=== PATIENT | female | born 1990 | race African-American/Black ===

== ENCOUNTER 2018-05-04 21:30 | Observation (INO) ==
[2018-05-04] MEDS ORDERED: Sod Chloride 0.9% Inj 1,000 ML IV.SIG ONE (23:52)
[2018-05-04] MEDS ORDERED: Ketorolac Inj 30 MG/ML (IVP) Vial IV.PUSH ONE (23:52)
[2018-05-05 00:22] LABS: Baso % (Auto) 0.6 % (0.0-2.0); Eos # (Auto) 0.1 th/mm3 (0.0-0.4); Eos % (Auto) 1.5 % (0.0-4.0); Hematocrit 34.8 % (35.0-46.0); Hemoglobin 11.6 gm/dL (11.6-15.3); Lymph % (Auto) 50.8 % (9.0-44.0); Mean Corpuscular HGB Conc 33.4 % (32.0-36.0); Mean Corpuscular Hemoglobin 31.9 pg (27.0-34.0); Mean Corpuscular Volume 95.7 fL (80.0-100.0); Mean Platelet Volume 7.8 fL (7.0-11.0); Mono # (Auto) 0.5 th/mm3 (0.0-0.9); Mono % (Auto) 8.3 % (0.0-8.0); Neut # (Auto) 2.3 th/mm3 (1.8-7.7); Neut % (Auto) 38.8 % (16.0-70.0); Platelet Count 258 th/mm3 (150-450); Red Blood Count 3.63 mil/mm3 (4.00-5.30); Red Cell Distribution Width 13.7 % (11.6-17.2); White Blood Count 5.8 th/mm3 (4.0-11.0)
[2018-05-05 00:42] LABS: Albumin 3.5 g/dL (3.4-5.0); Anion Gap 7 meq/L (5-15); Aspartate Aminotransferase 11 U/L (15-37); Blood Urea Nitrogen 15 mg/dL (7-18); Calcium 8.3 mg/dL (8.5-10.1); Carbon Dioxide 29.4 meq/L (21.0-32.0); Chloride 104 meq/L (98-107); Glomerular Filtration Rate Greater Than 89 mL/min (>89); Glucose,Random 93 mg/dL (74-106); Potassium 3.7 meq/L (3.5-5.1); Sodium 140 meq/L (136-145)
[2018-05-05 00:43] LABS: Alanine Aminotransferase 13 U/L (10-53)
[2018-05-05 00:45] LABS: Alkaline Phosphatase 50 U/L (45-117); Total Protein 6.7 g/dL (6.4-8.2)
--- NOTE | 2018-05-05 00:54 | ED ---
HPI General Chief complaint: Headache Stated complaint: dr vasquez/gia neuro Time Seen by Provider: 05/04/18 23:03 History of Present Illness HPI narrative: Patient 27-year-old female presents to the emergency department for evaluation of headache for the past 3 weeks. Patient actually presented to the hospital a few months ago and was diagnosed with a complex migraine versus TIA, she had an MRI which showed what appeared to be a simple cyst. She is also had some chronic pains and went to her orthopedic surgeon today who ordered MRIs of her spine and an MRI of her brain which showed that the cyst had probably grown in size per finding the history of the headache also ordered MRI of the brain which showed that the cyst had probably grown in size, also had changes possibly consistent with scattered infarcts or even an infectious process considering Lyme disease. Still with headache for the past 3 weeks she decided to present here. Before these events she never had headaches in the past. No focalized weakness, no visual difficulty. Related Data Home Medications Medication Instructions Recorded Confirmed ibuprofen 600 mg PO TID PRN 05/04/18 05/04/18 Allergies Allergy/AdvReac Type Severity Reaction Status Date / Time No Known Allergies Allergy Verified 05/04/18 23:11 Review of Systems ROS: all other systems reviewed are negative PMFSH Social History Social History Substance History: No History of Abuse Smoking Status: Current every day smoker Tobacco Type: Cigarettes How Often Do You Have a Drink Containing Alcohol: Monthly or less Recent Travel in [facility] within the Last 8 Weeks: No Recent Out of Country Travel within the Last 8 Weeks: No Immunization History Tetanus Immunization: Unsure Hx Influenza Vaccine This Season: No Exam Narrative Exam Narrative: GENERAL: Well-developed well-nourished appears uncomfortable. SKIN: Focused skin assessment warm/dry. HEAD: Atraumatic. Normocephalic. EYES: Pupils equal and round. No scleral icterus. No injection or drainage. ENT: No nasal bleeding or discharge. Mucous membranes pink and moist. NECK: Trachea midline. No JVD. CARDIOVASCULAR: Regular rate and rhythm. No murmur appreciated. RESPIRATORY: No accessory muscle use. Clear to auscultation. Breath sounds equal bilaterally. GASTROINTESTINAL: Abdomen soft, non-tender, nondistended. Hepatic and splenic margins not palpable. MUSCULOSKELETAL: No obvious deformities. No clubbing. No cyanosis. No edema. NEUROLOGICAL: Awake alert and oriented, cranial nerves II through XII grossly intact and nonfocal, 5 out of 5 strength in all 4 extremity's, cerebellar testing negative. PSYCHIATRIC: Appropriate mood and affect; insight and judgment normal. Course Initial Documented Vital Signs Temperature 98.2 F 05/04/18 21:34 Pulse Rate 94 H 05/04/18 21:34 Respiratory Rate 16 05/04/18 21:34 Blood Pressure 111/60 05/04/18 21:34 Pulse Oximetry 100 05/04/18 21:34 Last Documented Vital Signs Temperature 98.2 F 05/04/18 21:34 Pulse Rate 75 05/05/18 00:18 Respiratory Rate 16 05/05/18 00:34 Blood Pressure 118/77 05/05/18 00:18 Pulse Oximetry 100 05/05/18 00:18 Medical Decision Making MDM Narrative Medical decision making narrative: Patient has MRI disk and report with her. It appears as though this lesion has grown in her brain. Also with multiple abnormalities now concerning for "demylinating disease or lymes". patient feeling better after headache cocktail. ESR CRP negative. May be incidental finidng but patient warrants further workup and routine LP ordered by IR. Medical Screen Exam Complete: Yes Emergency Medical Condition: Yes Differential Diagnosis Differential Diagnosis: Headache, Abnormal MRI, MS, Lymes. Lab Data Result diagrams: 05/05/18 00:07 05/05/18 00:07 Lab Results 05/05/18 05/05/18 05/05/18 Range/Units 00:07 00:07 00:07 WBC 5.8 (4.0-11.0) th/mm3 RBC 3.63 L (4.00-5.30) mil/mm3 Hgb 11.6 (11.6-15.3) gm/dL Hct 34.8 L (35.0-46.0) % MCV 95.7 (80.0-100.0) fL MCH 31.9 (27.0-34.0) pg MCHC 33.4 (32.0-36.0) % RDW 13.7 (11.6-17.2) % Plt Count 258 (150-450) th/mm3 MPV 7.8 (7.0-11.0) fL Neut % (Auto) 38.8 (16.0-70.0) % Lymph % (Auto) 50.8 H (9.0-44.0) % [place] % (Auto) 8.3 H (0.0-8.0) % Eos % (Auto) 1.5 (0.0-4.0) % Baso % (Auto) 0.6 (0.0-2.0) % Neut # (Auto) 2.3 (1.8-7.7) th/mm3 Lymph # (Auto) 3.0 (1.0-4.8) th/mm3 [place] # (Auto) 0.5 (0.0-0.9) th/mm3 Eos # (Auto) 0.1 (0.0-0.4) th/mm3 Baso # (Auto) 0.0 (0.0-0.2) th/mm3 WBC Differential . Differential Comment Auto diff final ESR 7 (0-20) mm/hr Sodium 140 (136-145) meq/L Potassium 3.7 (3.5-5.1) meq/L Chloride 104 (98-107) meq/L Carbon Dioxide 29.4 (21.0-32.0) meq/L Anion Gap 7 (5-15) meq/L BUN 15 (7-18) mg/dL Creatinine 0.73 (0.50-1.00) mg/dL Estimated GFR Greater than 89 (>89) mL/min Random Glucose 93 (74-106) mg/dL Calcium 8.3 L (8.5-10.1) mg/dL Total Bilirubin 0.2 (0.2-1.0) mg/dL AST 11 L (15-37) U/L ALT 13 (10-53) U/L Alkaline Phosphatase 50 (45-117) U/L C-Reactive Protein Less than 0.29 (0.00-0.30) mg/dL Total Protein 6.7 (6.4-8.2) g/dL Albumin 3.5 (3.4-5.0) g/dL Discharge Plan Discharge Disposition Patient Disposition: 30 Still Patient Discharge Details Diagnosis: Headache Physicians Team ED Provider: Kyler Dennis Primary Care Provider: UNKNOWN, Attending Provider: Gregory Mack Discharge Interventions Interventions: Vital Signs Last Done: 05/05/18 00:18 Status ED Status: Admitted Patient
[2018-05-05] MEDS ORDERED: Bisacodyl 10 MG Supp RECTAL PRN (01:35)
[2018-05-05] MEDS: Sod Chloride 0.9% Inj 1,000 ML IV.CONT SCH ×2 (02:46→13:32)
--- NOTE | 2018-05-05 04:17 | P.HPIM ---
History of Present Illness Primary Care Physician: UNKNOWN History of Present Illness: 27-year-old female who presents with chronic headache. Patient was initially seen last month for weakness, MRI showed cystic area which was thought to be chronic. Patient was under a different profilepatient V number from that admission [id number]. She was seen by Dr. Thomas, with labs ordered and negative, discharged with plan for repeat MRI in 3 months. Patient was following up with her orthopedist, and reported chronic headaches to him, and he reordered MRI brain which shows what appears to be cystic structure which is increased in size by 50% as per review by ED physician. Patient is continued to have headaches for the past 3 weeks. Patient has just received 50 mg of IV Benadryl given for anxiety, and is now very somnolent, but does wake up to verbal stimulation. History is limited by somnolence. She reports continued whole head headaches. She denies any weakness. Denies any chest pain or shortness of breath. Denies fevers or chills. Inpatient Certification: I certify that the inpatient services were ordered in accordance with Medicare regulations governing the order. This includes certification that hospital inpatient services are reasonable and necessary and in the case of services not specified as inpatient-only under 42 CFR 419.22(n), that they are appropriately provided as inpatient services in accordance to with the 2-midnight benchmark under 43 CFR 412.3(e) Review of Systems All other systems reviewed negative except as stated in HPI PMFSH - History History Provided By: Patient, Family Member - Medical / Surgical Hx Neg / Unobtainable Surgical History: No Previous Surgery - Medical History Medical History: Medical History (Last Reviewed 05/04/18 @ 23:11 by Ariadna Sanchez) delivery delivered Cyst of brain - Surgical History Surgical History: Surgical History (Last Updated 05/05/18 @ 04:14 by Gregory Mack MD) No pertinent past surgical history - Family History Family History: Family History (Last Updated 05/05/18 @ 04:14 by Gregory Mack MD) Other No pertinent family history - Tobacco History Second Hand Smoke Exposure: Yes Tobacco Use In Past 30 Days: Yes Smoking Status: Current every day smoker Tobacco Type: Cigarettes - Alcohol History How Often Do You Have a Drink Containing Alcohol: Monthly or less - Substance Use History Substance History: No History of Abuse - Travel History Recent Travel in the [place] Within the Last 8 Weeks: No Recent Travel Out of the Country Within the Last 8 Weeks: No - Immunization History Tetanus Immunization: Unsure Hx Influenza Vaccine This Season: No Medications and Allergies Active Medications: Active Medications Al Hydroxide/Mg Hydroxide (Milk Of Magnesia Liq) 30 ml PO Q12H PRN PRN Reason: Mild Constipation Bisacodyl (Dulcolax Supp) 10 mg RECTAL DAILY PRN PRN Reason: SEVERE CONSITIPATION Sodium Chloride (Ns Inj) 1,000 mls @ 100 mls/hr IV.CONT .Q10H LAN Last Admin: 05/05/18 02:46 Dose: 100 mls/hr Lactulose (Lactulose Liq) 30 ml PO DAILY PRN PRN Reason: SEVERE CONSITIPATION Sennosides (Senokot) 17.2 mg PO Q12H PRN PRN Reason: Moderate Constipation Sodium Chloride (Ns Flush) 2 ml IV.FLUSH PRN PRN PRN Reason: FLUSH AFTER USING IV ACCESS Allergies Allergy/AdvReac Type Severity Reaction Status Date / Time No Known Allergies Allergy Verified 05/04/18 23:11 Home Medications Medication Instructions Recorded Confirmed Type ibuprofen 600 mg PO TID PRN 05/04/18 05/04/18 History Exam Vital signs: Vital Signs 05/04/18 21:34 05/05/18 00:18 05/05/18 00:34 Temperature 98.2 F Pulse Rate 94 H 75 Respiratory Rate 16 16 16 Blood Pressure 111/60 118/77 Pulse Oximetry 100 100 05/05/18 02:52 05/05/18 03:01 Temperature 97.8 F Pulse Rate 56 L Respiratory Rate 16 18 Blood Pressure 90/55 L Pulse Oximetry 99 Intake & Output 05/04/18 05/04/18 05/05/18 06:59 18:59 06:59 Intake Total 1000 / 1000 Balance 1000 / 1000 Weight 62.142 kg Intake: IV 1000 / 1000 NS Inj 1,000 ML @ Wide Open IV. 1000 / 1000 SIG BOLUS ONE Rx#:[id number] Other: Weight On Admission 62.142 kg Narrative: GENERAL: Patient lying in bed sleeping. Wakes up for exam. she is somnolent but oriented x3. SKIN: Warm and dry. HEAD: Atraumatic. Normocephalic. EYES: Pupils equal and round. No scleral icterus. No injection or drainage. ENT: No nasal bleeding or discharge. Mucous membranes pink and moist. NECK: Trachea midline. No JVD. CARDIOVASCULAR: Regular rate and rhythm. RESPIRATORY: No accessory muscle use. Clear to auscultation. Breath sounds equal bilaterally. GASTROINTESTINAL: Abdomen soft, non-tender, nondistended. Hepatic and splenic margins not palpable. MUSCULOSKELETAL: Extremities without clubbing, cyanosis, or edema. No obvious deformities. NEUROLOGICAL: Awake and alert. No obvious cranial nerve deficits. Motor grossly within normal limits. Five out of 5 muscle strength in the arms and legs. Normal speech. PSYCHIATRIC: Appropriate mood and affect; insight and judgment normal. Results - Labs CBC & Chem 7: 05/05/18 00:07 05/05/18 00:07 Labs: Short CBC 05/05/18 Range/Units 00:07 WBC 5.8 (4.0-11.0) th/mm3 Hgb 11.6 (11.6-15.3) gm/dL Hct 34.8 L (35.0-46.0) % Plt Count 258 (150-450) th/mm3 BMP 05/05/18 00:07 Sodium 140 Potassium 3.7 Chloride 104 Carbon Dioxide 29.4 BUN 15 Creatinine 0.73 Calcium 8.3 L Liver Function 05/05/18 Range/Units 00:07 Total Bilirubin 0.2 (0.2-1.0) mg/dL AST 11 L (15-37) U/L ALT 13 (10-53) U/L Alkaline Phosphatase 50 (45-117) U/L Albumin 3.5 (3.4-5.0) g/dL Caprini VTE Risk Assessment Caprini VTE Risk Assessment: No/Low Risk (score <= 1) Caprini Risk Assessment Model: Point Value = 1 Point Value = 2 Point Value = 3 Point Value = 5 Age 41-60 Minor surgery BMI > 25 kg/m2 Swollen legs Varicose veins or History of unexplained or recurrent spontaneous Oral contraceptives or hormone replacement Sepsis (< 1 month) Serious lung disease, including pneumonia (< 1 month) Abnormal pulmonary function Acute myocardial infarction Congestive heart failure (< 1 month) History of inflammatory bowel disease Medical patient at bed rest Age 61-74 Arthroscopic surgery Major open surgery (> 45 min) Laparoscopic surgery (> 45 min) Malignancy Confined to bed (> 72 hours) Immobilizing plaster cast Central venous access Age >= 75 History of VTE Family history of VTE Factor V Leiden Prothrombin [id number] Lupus anticoagulant Anticardiolipin antibodies Elevated serum homocysteine Heparin-induced thrombocytopenia Other congenital or acquired thrombophilia Stroke (< 1 month) Elective arthroplasty Hip, pelvis, or leg fracture Acute spinal cord injury (< 1 month) Prophylaxis Regimen: Total Risk Factor Score Risk Level Prophylaxis Regimen 0-1 Low Early ambulation 2 Moderate Order ONE of the following: *Sequential Compression Device (SCD) *Heparin 5000 units SQ BID 3-4 Higher Order ONE of the following medications: *Heparin 5000 units SQ TID *Enoxaparin/Lovenox 40 mg SQ daily (WT < 150 kg, CrCl > 30 mL/min) *Enoxaparin/Lovenox 30 mg SQ daily (WT < 150 kg, CrCl > 10-29 mL/min) *Enoxaparin/Lovenox 30 mg SQ BID (WT < 150 kg, CrCl > 30 mL/min) AND/OR *Sequential Compression Device (SCD) 5 or more Highest Order ONE of the following medications: *Heparin 5000 units SQ TID (Preferred with Epidurals) *Enoxaparin/Lovenox 40 mg SQ daily (WT < 150 kg, CrCl > 30 mL/min) *Enoxaparin/Lovenox 30 mg SQ daily (WT < 150 kg, CrCl > 10-29 mL/min) *Enoxaparin/Lovenox 30 mg SQ BID (WT < 150 kg, CrCl > 30 mL/min) AND *Sequential Compression Device (SCD) Assessment and Plan - Plan //Chronic headache //Worsening size of cystic brain mass. Reviewed by ER physician reports an increase by over 50% in size of brain cyst. Have ordered for interventional radiology to perform lumbar puncture. Neurochecks. Pain meds as necessary. Coags will be ordered. Consult Dr. Thomas neurologist. //Tobacco abuse. Cessation counseling provided. Discussed Condition With: Patient, nurse, ED physician. H&P: Quality - VTE Deep Vein Thrombosis/Pulmonary Embolism Present on Admission: No
[2018-05-05] MEDS ORDERED: Sod Chloride 0.9% Inj 1,000 ML IV.SIG SCH ×2 (05:45→06:15)
[2018-05-05 08:57] VITALS: BP 103/59; PULSE 61; RESP 16; TEMP 97.3; O2SAT 100
[2018-05-05 10:32] LABS: Amphetamine Screen,Urine Neg (Neg); Barbiturate Screen,Urine Neg (Neg); Cannabinoid Screen,Urine Pos (Neg); Cocaine Screen,Urine Neg (Neg); Opiate Screen,Urine Neg (Neg)
[2018-05-05] MEDS ORDERED: Butalbital/APAP/Caff 50/325/40 MG Tablet PO PRN (11:42)
--- NOTE | 2018-05-05 12:38 | P.PNNEU ---
Subjective Subjective Comments: i reviewed the mri disk the pt brought from 05/02/18 the r lesion looks to be as far as i can tell not larger but i recommended repeat mri with contrast here to compare the film to the 03/2018 one we did here prior and also to try topamax for chronic rodas . they are unhappy and want to go to [place] Active Medications: Active Medications Acetaminophen/Butalbital/Caffeine (Fioricet 50-325-40) 1 tab PO Q6H PRN PRN Reason: HEADACHE Last Admin: 05/05/18 11:51 Dose: 1 tab Al Hydroxide/Mg Hydroxide (Milk Of Magnesia Liq) 30 ml PO Q12H PRN PRN Reason: Mild Constipation Bisacodyl (Dulcolax Supp) 10 mg RECTAL DAILY PRN PRN Reason: SEVERE CONSITIPATION Sodium Chloride (Ns Inj) 1,000 mls @ 100 mls/hr IV.CONT .Q10H LAN Last Infusion: 05/05/18 09:27 Dose: 100 mls/hr Lactulose (Lactulose Liq) 30 ml PO DAILY PRN PRN Reason: SEVERE CONSITIPATION Sennosides (Senokot) 17.2 mg PO Q12H PRN PRN Reason: Moderate Constipation Sodium Chloride (Ns Flush) 2 ml IV.FLUSH PRN PRN PRN Reason: FLUSH AFTER USING IV ACCESS Allergies/Adverse Reactions: Allergies Allergy/AdvReac Type Severity Reaction Status Date / Time No Known Allergies Allergy Verified 05/04/18 23:11 Physical Exam Vital signs: Vital Signs 05/04/18 21:34 05/05/18 00:18 05/05/18 00:34 Temperature 98.2 F Pulse Rate 94 H 75 Respiratory Rate 16 16 16 Blood Pressure 111/60 118/77 Pulse Oximetry 100 100 05/05/18 02:52 05/05/18 03:01 05/05/18 04:00 Temperature 97.8 F 97.8 F Pulse Rate 56 L 56 L Respiratory Rate 16 18 18 Blood Pressure 90/55 L 90/55 L Pulse Oximetry 99 99 05/05/18 08:00 Temperature 97.3 F L Pulse Rate 61 Respiratory Rate 16 Blood Pressure 103/59 L Pulse Oximetry 100 Intake & Output 05/04/18 05/05/18 05/05/18 18:59 06:59 18:59 Intake Total 1000 / 1000 1000 / 1000 Balance 1000 / 1000 1000 / 1000 Weight 62.142 kg Intake: IV 1000 / 1000 1000 / 1000 NS Inj 1,000 ML @ Wide Open IV. 1000 / 1000 1000 / 1000 SIG [facility] Rx#:[id number] Oral 0 / 0 Other: # Voids 0 Date of Last Bowel Movement 05/04/18 Weight On Admission 62.142 kg Objective Laboratory Results - last 24 hr 05/05/18 05/05/18 05/05/18 00:07 00:07 00:07 WBC 5.8 RBC 3.63 L Hgb 11.6 Hct 34.8 L MCV 95.7 MCH 31.9 MCHC 33.4 RDW 13.7 Plt Count 258 MPV 7.8 Neut % (Auto) 38.8 Lymph % (Auto) 50.8 H [place] % (Auto) 8.3 H Eos % (Auto) 1.5 Baso % (Auto) 0.6 Neut # (Auto) 2.3 Lymph # (Auto) 3.0 [place] # (Auto) 0.5 Eos # (Auto) 0.1 Baso # (Auto) 0.0 WBC Differential . Differential Comment Auto diff final ESR 7 Sodium 140 Potassium 3.7 Chloride 104 Carbon Dioxide 29.4 Anion Gap 7 BUN 15 Creatinine 0.73 Estimated GFR Greater than 89 Random Glucose 93 Calcium 8.3 L Total Bilirubin 0.2 AST 11 L ALT 13 Alkaline Phosphatase 50 C-Reactive Protein Less than 0.29 Total Protein 6.7 Albumin 3.5 Urine Opiates Screen Ur Barbiturates Screen Ur Amphetamines Screen U Benzodiazepines Scrn Urine Cocaine Screen U Cannabinoids Screen 05/05/18 09:00 WBC RBC Hgb Hct MCV MCH MCHC RDW Plt Count MPV Neut % (Auto) Lymph % (Auto) [place] % (Auto) Eos % (Auto) Baso % (Auto) Neut # (Auto) Lymph # (Auto) [place] # (Auto) Eos # (Auto) Baso # (Auto) WBC Differential Differential Comment ESR Sodium Potassium Chloride Carbon Dioxide Anion Gap BUN Creatinine Estimated GFR Random Glucose Calcium Total Bilirubin AST ALT Alkaline Phosphatase C-Reactive Protein Total Protein Albumin Urine Opiates Screen Neg Ur Barbiturates Screen Neg Ur Amphetamines Screen Neg U Benzodiazepines Scrn Neg Urine Cocaine Screen Neg U Cannabinoids Screen Pos H
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
== END 2018-05-05 13:39 | disposition left against medical advice (07) ==
LOC: NEPD 21:30 → NEDA 05-05 01:21 → INTOOBSV 05-05 01:21 → NEPHCDU 05-05 02:46
PROVIDERS: ADMIT Hospitalist; ATTEND Hospitalist